=== PATIENT | male | born 1990 | race Caucasian/White ===

== ENCOUNTER 2019-09-26 11:17 | Emergency (ER) | payer OTHER ==
[~2019-09-26] VITALS: Ht 185.4 cm; Wt 114.3 kg
[2019-09-26 11:32] VITALS: Ht 185.4 cm; Wt 114.3 kg
[2019-09-26 14:03] VITALS: BP 148/82
== END 2019-09-26 15:11 | disposition short-term general hospital (02) ==
LOC: ED 11:17
DX: S62.621B Displaced fracture of middle phalanx of left index finger, initial encounter for open fracture (principal); F42.9 Obsessive-compulsive disorder, unspecified; W31.2XXA Contact with powered woodworking and forming machines, initial encounter; Y93.89 Activity, other specified; Y92.89 Other specified places as the place of occurrence of the external cause; Y99.0 Civilian activity done for income or pay
CPT/HCPCS: J0696; Q0092